=== PATIENT | female | born 1995 | race Caucasian/White ===

== ENCOUNTER 2023-09-01 04:56 | Observation (INO) ==
--- NOTE | 2023-09-01 05:10 | DR.SOBA ---
HPI Time Seen Time Seen by Provider: 09/01/23 05:10 Complaints Chief Complaint Doctors Comments: Patient states that she has been using primatene mist for 3 weeks. Two days ago her symptoms worsened and the primatene mist was not helping her. Patient has chest discomfort.Patient denies:fever,cough,nausea,vomitng,back pain,abdl pain,dizziness. PMH PMH Past Surgical History: Yes Social History Do you use any recreational Drugs:: No ROS Review of Systems Constitutional: negative Fever Eyes: No Symptoms Reported ENTM: No Symptoms Reported Respiratoy: Short of Breath Cardiovascular: No Symptoms Reported and Chest Pain Gastrointestinal/Abdominal: No Symptoms Reported Genitourinary: No Symptoms Reported Neurological: Anxiety Musculoskeletal: No Symptoms Reported Integumentary: No Symptoms Reported Hematologic/Lymphatic: No Symptoms Reported Endocrine: No Symptoms Reported Psychiatric: No Symptoms Reported All Other Systems: Reviewed and Negative PE Vital Signs Vitals: Vital Signs Temperature 98.8 F Pulse Rate 74 Pulse Rate 81 Pulse Rate 68 Pulse Rate 68 Pulse Rate 85 Pulse Rate 88 Pulse Rate 94 Pulse Rate 96 Pulse Rate 98 Pulse Rate 108 Respiratory Rate 20 Respiratory Rate 18 Respiratory Rate 19 Respiratory Rate 16 Respiratory Rate 21 Respiratory Rate 19 Respiratory Rate 19 Respiratory Rate 19 Respiratory Rate 20 Blood Pressure 145/81 Blood Pressure 144/85 Blood Pressure 144/85 Blood Pressure 132/86 Blood Pressure 131/88 Blood Pressure 145/94 O2 Sat by Pulse Oximetry 95 O2 Sat by Pulse Oximetry 99 O2 Sat by Pulse Oximetry 98 O2 Sat by Pulse Oximetry 99 O2 Sat by Pulse Oximetry 97 O2 Sat by Pulse Oximetry 97 O2 Sat by Pulse Oximetry 96 O2 Sat by Pulse Oximetry 95 O2 Sat by Pulse Oximetry 95 O2 Sat by Pulse Oximetry 94 General Limitations: No Limitations General Appearance: Alert and Anxious Head Head Exam: Normal Inspection Eyes Eye exam: Normal Appearance ENT ENT Exam: Normal Exam Neck Neck Exam: Normal Inspection Chest Chest Inspection: Normal Inspection Respiratory Respiratory Exam: Normal Lung Sounds Bilat Respiratory Exam: Bilateral: Wheezing (expiratory generalized) Cardiovascular Cardiovascular Exam: Regular Rate and Normal Rhythm Abdominal Exam Abdominal Exam: Normal Inspection, Normal Bowel Sounds and Soft Extremities Extremities Exam: Normal Inspection Back Back Exam: Normal Inspection Neurologic Neurological Exam: Alert and Oriented X3 Psychiatric Psychiatric Exam: Normal Affect and Normal Mood Skin Skin Exam: Warm, Dry, Intact and Normal Color MDM Differential Diagnosis Differential Diagnosis: Asthma and Pneumonia Differential Diagnosis Comment:: Electrolyte Disorder COURSE Treatment Treatment: 05:10 Evaluated the patient. Labs ordered,iv access initiated and patient was given solumedrol 125mg Iv,1hr long duoneb. 05:35 ABG: Ph 7.42/P02 66/PC02 37/02SAT 93% 05:45 Re-exam Patient has expiratory rhonchi diffusely,CXR no acute process,wbc wnl,CMP stable 06:[address] Lauren. Dr Lauren has accepted the patient to his service for further evaluation. [facility]OR Labs Reviewed Laboratory Results Reviewed?: Yes 09/01/23 05:15 09/01/23 05:15 Laboratory: WBC 13.4 X10^3/uL (3.6-10.0) H 09/01/23 05:15 RBC 4.97 X10^6/uL (3.5-5.4) 09/01/23 05:15 Hgb 15.7 g/dL (12.0-16.0) 09/01/23 05:15 Hct 46.6 % (36.0-47.0) 09/01/23 05:15 MCV 93.8 fL (80.0-100.0) 09/01/23 05:15 MCH 31.7 pg (27.0-34.0) 09/01/23 05:15 MCHC 33.8 g/dL (33.0-35.0) 09/01/23 05:15 RDW 13.0 % (11.6-16.5) 09/01/23 05:15 Plt Count 419 X10^3/uL (150.0-450.0) 09/01/23 05:15 MPV 7.4 fL (7.4-11.0) 09/01/23 05:15 Neut % (Auto) 68.7 % (42.0-75.0) 09/01/23 05:15 Lymph % (Auto) 16.3 % (21.0-51.0) L 09/01/23 05:15 Ogle % (Auto) 5.6 % (0.0-13.0) 09/01/23 05:15 Eos % (Auto) 9.0 % (0.9-2.9) H 09/01/23 05:15 Baso % (Auto) 0.4 % (0.2-1.0) 09/01/23 05:15 Neut # (Auto) 9.2 x10^3/uL (2.2-4.8) H 09/01/23 05:15 Lymph # (Auto) 2.2 X10^3/uL (1.3-2.9) 09/01/23 05:15 Ogle # (Auto) 0.7 x10^3/uL (0.3-0.8) 09/01/23 05:15 Eos # (Auto) 1.2 x10^3/uL (0.0-0.2) H 09/01/23 05:15 Baso # (Auto) 0.1 X10^3/uL (0.0-0.1) 09/01/23 05:15 Absolute Nucleated RBC 0.1 /100WBC 09/01/23 05:15 Sample Site Rr 09/01/23 05:24 ABG pH 7.420 (7.35-7.45) 09/01/23 05:24 ABG pCO2 37.0 mmHg (35.0-45.0) 09/01/23 05:24 ABG pO2 66.0 mmHg (80.0-100.0) L 09/01/23 05:24 ABG HCO3 24.0 mmol/L (22-26) 09/01/23 05:24 ABG O2 Saturation 93.0 % (90-100) 09/01/23 05:24 ABG Base Excess -0.2 mmol/L (-2.0-2.0) 09/01/23 05:24 Dav Test Pos 09/01/23 05:24 A-a Gradient 37.0 mmHg 09/01/23 05:24 FiO2 21.0 09/01/23 05:24 Blood Gas Comments Bryson well ae 09/01/23 05:24 Sodium 136 mmol/L (136-145) 09/01/23 05:15 Corrected Sodium TNP 09/01/23 05:15 Potassium 4.0 mmol/L (3.5-5.1) 09/01/23 05:15 Chloride 102 mmol/L (98-107) 09/01/23 05:15 Carbon Dioxide 24.8 mmol/L (21-32) 09/01/23 05:15 BUN 11 mg/dL (7-18) 09/01/23 05:15 Creatinine 0.79 mg/dL (0.55-1.02) 09/01/23 05:15 Est GFR (MDRD) Af Amer > 60 (>60) 09/01/23 05:15 Est GFR (MDRD) Non-Af > 60 (>60) 09/01/23 05:15 Glucose 85 mg/dL (65-99) 09/01/23 05:15 Lactic Acid 0.4 mmol/L (0.4-2.0) 09/01/23 05:30 Calcium 9.0 mg/dL (8.5-10.1) 09/01/23 05:15 Corrected Calcium TNP 09/01/23 05:15 Total Bilirubin 0.80 mg/dL (0.2-1.0) 09/01/23 05:15 AST 16 Units/L (15-37) 09/01/23 05:15 ALT 24 Units/L (12-78) 09/01/23 05:15 Alkaline Phosphatase 148 Units/L (46-116) H 09/01/23 05:15 C-Reactive Protein 7.20 mg/L (0-3.0) H 09/01/23 05:15 Total Protein 8.5 g/dL (6.4-8.2) H 09/01/23 05:15 Albumin 4.0 g/dL (3.4-5.0) 09/01/23 05:15 Globulin 4.5 g/dL (2.5-4.5) 09/01/23 05:15 Albumin/Globulin Ratio 0.9 Ratio (1.1-2.1) L 09/01/23 05:15 Opioid Opioid Risk Tool Age (Donovan box if 16-45): Yes History of Preadolescent Sexual Abuse: No Total: 1 Total Score Risk Category: Low Risk Copyright: Mikhail SAAVEDRA predicting aberrant behaviors Discharge Plan Diagnosis Discharge Problem: Asthma exacerbation, Hypoxemia Discharge Plan Patient Disposition: 09 ADMITTED INPATIENT Condition: Stable Prescriptions: No Action sertraline 50 mg tablet 50 mg PO QDAY Primatene Mist 0.125 mg/actuation Hfa Aerosol Inhaler 1 puff INHALATION Q4H PRN Rx Instructions: may repeat once after 1 minute; do not exceed 8 inhalations per 24 hrs Health Concerns: Post Hospitalization: new medications and changes needed to prevent readmission or further decline. Pt educated and given instructions on all concerns. Plan of Treatment: Continue with present treatment and follow up plan. Pt is to keep follow up appointment as instructed and take medications as ordered. Orders to Discharge Patient Discharge Orders: Transfer (Routine); Ordered 09/01/23 Ordered By: Chloe Garcia Follow ups/Referrals Follow ups/Referrals: NFD,None [Primary Care Provider] - 3 days Instructions Stand Alone Forms: Post Hospital Follow Up Care
[2023-09-01] MEDS ORDERED: SOLU-Medrol 125 MG VIAL ONE (05:14)
[2023-09-01] MEDS ORDERED: PROVENTIL NEB TX 0.083% 2.5MG/ 3ML ONE ×2 (05:15→05:18)
[2023-09-01] MEDS ORDERED: SALINE 0.9% 3 ML NEB TX NEB ONE (05:15)
[2023-09-01] MEDS ORDERED: PROVENTIL NEB TX 0.083% 2.5MG/ 3ML NEB ONE (05:17)
[2023-09-01] MEDS ORDERED: SOLU-Medrol 125 MG VIAL IVP ONE (05:19)
[2023-09-01 05:30] LABS: ABG ALLEN TEST POS; ABG BASE EXCESS -0.2 mmol/L (-2.0-2.0)
[2023-09-01 05:31] LABS: BASOPHILS # (AUTO) 0.1 X10^3/uL (0.0-0.1); BASOPHILS % (AUTO) 0.4 % (0.2-1.0); EOSINOPHILS # (AUTO) 1.2 x10^3/uL (0.0-0.2); HEMATOCRIT 46.6 % (36.0-47.0); HEMOGLOBIN 15.7 g/dL (12.0-16.0); LYMPHOCYTES # (AUTO) 2.2 X10^3/uL (1.3-2.9); LYMPHOCYTES % (AUTO) 16.3 % (21.0-51.0); MEAN CORPUSCULAR HEMOGLOBIN 31.7 pg (27.0-34.0); MEAN CORPUSCULAR HGB CONC 33.8 g/dL (33.0-35.0); MEAN CORPUSCULAR VOLUME 93.8 fL (80.0-100.0); MEAN PLATELET VOLUME 7.4 fL (7.4-11.0); MONOCYTES # (AUTO) 0.7 x10^3/uL (0.3-0.8); MONOCYTES % (AUTO) 5.6 % (0.0-13.0); NEUTROPHILS # (AUTO) 9.2 x10^3/uL (2.2-4.8); NEUTROPHILS % (AUTO) 68.7 % (42.0-75.0); PLATELET COUNT 419 X10^3/uL (150.0-450.0); RED BLOOD COUNT 4.97 X10^6/uL (3.5-5.4); WHITE BLOOD COUNT 13.4 X10^3/uL (3.6-10.0)
[2023-09-01 05:39] LABS: ALANINE AMINOTRANSFERASE 24 Units/L (12-78); ALKALINE PHOSPHATASE 148 Units/L (46-116); ASPARTATE AMINO TRANSFERASE 16 Units/L (15-37); BLOOD UREA NITROGEN 11 mg/dL (7-18); CARBON DIOXIDE 24.8 mmol/L (21-32); CHLORIDE 102 mmol/L (98-107); CREATININE 0.79 mg/dL (0.55-1.02); GLUCOSE 85 mg/dL (65-99); SODIUM 136 mmol/L (136-145); TOTAL PROTEIN 8.5 g/dL (6.4-8.2); eGFR NON BLACK RACES > 60 (>60)
[2023-09-01] MEDS ORDERED: NS 1,000 ML IV 1,000 ML ONE (07:12)
[2023-09-01] MEDS: NS 1,000 ML IV 1,000 ML IV SCH ×2 (07:14→21:06)
--- NOTE | 2023-09-01 07:35 | RAD ---
EXAM:Portable chestHISTORY:Cough, wheezing, shortness of breathCOMPARISON:NoneFINDINGS:Heart size is normal. Guerline are normal. Lungs are free of acute infiltrates. No pleural effusions are identified. No pneumothorax identified. Bony thorax is unremarkable.IMPRESSION:No significant abnormality identifiedTHIS IS AN ELECTRONICALLY VERIFIED FINAL REPORT09/01/2023 7:32 AM - Electronically signed by Moises Reed MD
[2023-09-01] MEDS ORDERED: ZOLOFT PO SCH ×2 (09:00→21:00)
[2023-09-01 09:19] VITALS: BMI 37.3
[2023-09-01] MEDS: DUONEB 0.5 MG/3 MG (3 mL) NEB SCH ×5 (09:30→20:20)
[2023-09-01] MEDS: ROCEPHIN VIAL 1 GRAM 1 G in NS 100 ML IV 100 ML IV SCH (10:16)
--- NOTE | 2023-09-01 10:30 | DR.H&P ---
H&P - History & Physical for Day of: H&P Date: 09/01/23 - Chief Complaint Chief Complaint: SHORTNESS OF BREATH AND WHEEZING - History of Present Illness History of Present Illness: IS A 27 YEAR OLD WHITE FEMALE. SHE HAS A PMH OF ASTHMA. SHE DOES NOT HAVE A PCP AND ONLY TAKES OVER THE COUNTER PRIMATENE FOR HER ASTHMA. SHE PRESENTED TO THE ER WITH COMPLAINTS OF SHORTNESS OF BREATH AND WHEEZING FOR THE PAST 3 WEEKS, THAT HAS PROGRESSIVELY GOTTEN WORSE. SHE ADMITS TO GOING THROUGH ONE PRIMATENE MIST INHALER A WEEK, WHEREAS ONE USUALLY LASTS HER A MONTH. SHE ADMITS TO CHEST DISCOMFORT. SHE DENIES FEVER, NAUSEA, VOMITING, BACK PAIN, ABDOMINAL PAIN, OR DIZZINESS. ON ARRIVAL TO THE ER, HER VITALS WERE: 98.8-108-20-94%-145/94. LABS WERE OBTAINED. WBC 13.4, RBC 4.97, HGB 15.7, HCT 46.6, PLT COUNT 419, SODIUM 136, POTASSIUM 4.0, CHLORIDE 102, BUN 11, CREATININE 0.79, GLUCOSE 85, CALCIUM 9.0, TOTAL BILI 0.80, AST 16, ALT 24, ALK PHOS 148, CRP 7.20, TOTAL PROTEIN 8.5, ALBUMIN 4.0. ABG WAS OBTAINED AND REVEALED: PH 7.420, PC02 37, P02 66, HC03 24.0, 02 SAT 93, BASE EXCESS -0.2, A-A GRADIENT 37, FI02 21.0. COVID, INFLUENZA, AND RSV WERE NEGATIVE. A RESPIRATORY VIRAL SWAB WAS DONE. BLOOD CULTURES WERE SET UP. A CHEST XRAY WAS OBTAINED AND REVEALED: Heart size is normal. Guerline are normal. Lungs are free of acute infiltrates. No pleural. effusions are identified. No pneumothorax identified. Bony thorax is unremarkable. IN THE ER, SHE WAS GIVEN A SALINE NEB TX, PROVENTIL NEB TX, SOLU-MEDROL 125MG IV X 1. SHE WAS ADMITTED TO THE HOSPITAL OBSERVATION STATUS FOR FURTHER EVALUATION AND TREATMENT OF ASTHMA EXCERBATION AND ACUTE BRONCHITIS. SHE WAS STARTED ON NORMAL SALINE AT 75 ML/HR, ROCEPHIN 1G IV DAILY, SOLU-MEDROL 40MG IV Q8H, DUONEBS Q4H, AND ZOLOFT 50MG PO HS. OTHERWISE, WE PLAN TO FOLLOW-UP WITH AM LABS AND CONTINUE TO MONITOR. TIME SPENT ON CLINICAL ASSESSMENT, REVIEWING LABS AND IMAGING, DECISION MAKING, AND DOCUMENTATION GREATER THAN 75 MINUTES. - Past Medical History Past Medical History: Anxiety, Asthma, Depression, Hypertension - Past Surgical History Surgical History: - Family History Family Medical History: Cancer - Social History Does patient currently use any type of tobacco product: Yes (VAPE) Have you used tobacco products in the last 12 months: Yes Type of Tobacco Use: Smokeless Does any household member use tobacco: No Alcohol Use: Rarely Drug Use: Marijuana - Review of Systems Constitutional: No Symptoms Reported Eyes: No Symptoms Reported ENT: No Symptoms Reported Respiratory: See HPI, Shortness of Breath, SOB with Excertion, Wheezing Cardiovascular: No Symptoms Reported Gastrointestinal: No Symptoms Reported Genitourinary: No Symptoms Reported Musculoskeletal: No Symptoms Reported Skin: No Symptoms Reported Neurological: No Symptoms Reported - Physical Exam Vital Signs: Vital Signs Temperature 98.8 F Pulse Rate [Left Radial] 98 Pulse Rate 98 Pulse Rate 81 Pulse Rate 89 Pulse Rate 91 Pulse Rate 94 Pulse Rate 109 Pulse Rate 105 Pulse Rate 97 Pulse Rate 106 Pulse Rate 74 Pulse Rate 81 Pulse Rate 68 Pulse Rate 68 Pulse Rate 85 Pulse Rate 88 Pulse Rate 94 Pulse Rate 96 Pulse Rate 98 Pulse Rate 108 Respiratory Rate 24 Respiratory Rate 23 Respiratory Rate 19 Respiratory Rate 23 Respiratory Rate 24 Respiratory Rate 27 Respiratory Rate 13 Respiratory Rate 20 Respiratory Rate 19 Respiratory Rate 20 Respiratory Rate 18 Respiratory Rate 19 Respiratory Rate 16 Respiratory Rate 21 Respiratory Rate 19 Respiratory Rate 19 Respiratory Rate 19 Respiratory Rate 20 Blood Pressure [Left Arm] 153/79 Blood Pressure 144/85 Blood Pressure 162/93 Blood Pressure 150/81 Blood Pressure 145/81 Blood Pressure 144/85 Blood Pressure 144/85 Blood Pressure 132/86 Blood Pressure 131/88 Blood Pressure 145/94 O2 Sat by Pulse Oximetry 95 O2 Sat by Pulse Oximetry 95 O2 Sat by Pulse Oximetry 94 O2 Sat by Pulse Oximetry 93 O2 Sat by Pulse Oximetry 93 O2 Sat by Pulse Oximetry 92 O2 Sat by Pulse Oximetry 96 O2 Sat by Pulse Oximetry 96 O2 Sat by Pulse Oximetry 93 O2 Sat by Pulse Oximetry 94 O2 Sat by Pulse Oximetry 95 O2 Sat by Pulse Oximetry 99 O2 Sat by Pulse Oximetry 98 O2 Sat by Pulse Oximetry 99 O2 Sat by Pulse Oximetry 97 O2 Sat by Pulse Oximetry 97 O2 Sat by Pulse Oximetry 96 O2 Sat by Pulse Oximetry 95 O2 Sat by Pulse Oximetry 95 O2 Sat by Pulse Oximetry 94 Oriented: Normal Eyes: Normal Ear: Normal Nose: Normal Throat: Normal Respiratory: Wheezes Throughout Cardiovascular: Tachycardia : Normal Auscultation: Bowel Sounds: Normal Palpation: Normal Tenderness: Normal Skin: Normal Musculoskeletal: Normal Psychiatric: Normal Mood Description: Calm Affect: Normal Speech Pattern: Clear - Assessment/Plan (1) Asthma exacerbation Qualifiers: Asthma severity: moderate Asthma persistence: unspecified Qualified Code(s): J45.901 - Unspecified asthma with (acute) exacerbation Status: Acute Plan: ADMIT, SUPPLEMENTAL OXYGEN, NORMAL SALINE AT 75 ML/HR, ROCEPHIN 1G IV DAILY, SOLU-MEDROL 40MG IV Q8H, DUONEBS Q4H, AND ZOLOFT 50MG PO HS. (2) Acute bronchitis Qualifiers: Bronchitis organism: unspecified organism Qualified Code(s): J20.9 - Acute bronchitis, unspecified Status: Acute (3) Hypoxemia Status: Acute (4) Major depressive disorder Qualifiers: Major depression recurrence: recurrent Active/Remission status: remission status unspecified Qualified Code(s): F33.9 - Major depressive disorder, recurrent, unspecified Status: Chronic Plan: RESUME ZOLOFT - Allergies Allergies/Adverse Reactions: Allergies Allergy/AdvReac Type Severity Reaction Status Date / Time No Known Drug Allergies Allergy Verified 09/01/23 05:07 - Medications Home Medications: Home Medications Medication Instructions Recorded Confirmed epinephrine 0.125 mg/actuation 1 puff inhalation Q4H PRN 09/01/23 09/01/23 aerosol inhaler (Primatene Mist) sertraline 50 mg tablet 50 mg PO QDAY 09/01/23 09/01/23
[2023-09-01] MEDS: SOLU-Medrol 40 MG VIAL IVP SCH ×2 (13:57→21:06)
[2023-09-01] MEDS ORDERED: TYLENOL 325 MG TAB PO PRN (16:09)
[2023-09-02] MEDS: DUONEB 0.5 MG/3 MG (3 mL) NEB SCH ×3 (00:25→09:04)
[2023-09-02 04:22] VITALS: TEMP 97.9
[2023-09-02] MEDS: SOLU-Medrol 40 MG VIAL IVP SCH (05:20)
[2023-09-02 06:07] LABS: BASOPHILS % (AUTO) 0.3 % (0.2-1.0); HEMATOCRIT 40.6 % (36.0-47.0); LYMPHOCYTES # (AUTO) 0.6 X10^3/uL (1.3-2.9); LYMPHOCYTES % (AUTO) 4.2 % (21.0-51.0); MEAN CORPUSCULAR HEMOGLOBIN 31.3 pg (27.0-34.0); MEAN CORPUSCULAR HGB CONC 33.7 g/dL (33.0-35.0); MEAN CORPUSCULAR VOLUME 92.9 fL (80.0-100.0); MEAN PLATELET VOLUME 7.8 fL (7.4-11.0); MONOCYTES # (AUTO) 0.4 x10^3/uL (0.3-0.8); MONOCYTES % (AUTO) 3.2 % (0.0-13.0); NEUTROPHILS # (AUTO) 12.4 x10^3/uL (2.2-4.8); PLATELET COUNT 367 X10^3/uL (150.0-450.0); RED BLOOD COUNT 4.38 X10^6/uL (3.5-5.4); RED CELL DISTRIBUTION WIDTH 13.2 % (11.6-16.5); WHITE BLOOD COUNT 13.5 X10^3/uL (3.6-10.0)
[2023-09-02 06:11] LABS: ALANINE AMINOTRANSFERASE 20 Units/L (12-78); ALBUMIN 3.5 g/dL (3.4-5.0); ALKALINE PHOSPHATASE 125 Units/L (46-116); ASPARTATE AMINO TRANSFERASE 11 Units/L (15-37); BLOOD UREA NITROGEN 9 mg/dL (7-18); CARBON DIOXIDE 23.9 mmol/L (21-32); CHLORIDE 103 mmol/L (98-107); COR NA(FOR HYPERGLY) 138 mmol/L (136-145); CREATININE 0.57 mg/dL (0.55-1.02); GLUCOSE 128 mg/dL (65-99); SODIUM 137 mmol/L (136-145); TOTAL PROTEIN 7.6 g/dL (6.4-8.2); eGFR NON BLACK RACES > 60 (>60)
[2023-09-02 06:13] LABS: HEMOGLOBIN 13.7 g/dL (12.0-16.0)
[2023-09-02 06:14] LABS: NEUTROPHILS % (AUTO) 92.3 % (42.0-75.0)
[2023-09-02 06:28] LABS: BAND NEUTROPHILS % 1 % (0-10); PLATELET MORPHOLOGY COMMENT NORMAL (NORMAL)
--- NOTE | 2023-09-02 07:54 | RAD ---
EXAM:CHEST, 1 VIEWHISTORY:SOB ;COMPARISON:09/01/2023.TECHNIQUE:AP view of the chestFINDINGS:The cardiac and mediastinal contours are normal in size. Minor linear right mid to lower lung opacity. No consolidation or segmental lung collapse. No pleural effusion or pneumothorax.IMPRESSION:Minor subsegmental atelectasis or scar in the right mid to lower lung.THIS IS AN ELECTRONICALLY VERIFIED FINAL REPORT09/02/2023 7:39 AM - Electronically signed by Vijay Montaño MD
[2023-09-02 08:15] VITALS: BP 142/81; PULSE 94; RESP 18; O2SAT 95
[2023-09-02] MEDS: ROCEPHIN VIAL 1 GRAM 1 G in NS 100 ML IV 100 ML IV SCH (10:08)
== END 2023-09-02 11:35 | disposition home or self-care (01) ==
LOC: ER 04:58 → MED/SURG 04:58
PROVIDERS: ADMIT Internal Medicine; ATTEND Internal Medicine
DX: R09.02 Hypoxemia; R06.02 Shortness of breath; J45.901 Unspecified asthma with (acute) exacerbation; R79.82 Elevated C-reactive protein (CRP); J20.8 Acute bronchitis due to other specified organisms; F33.8 Other recurrent depressive disorders; I10 Essential (primary) hypertension; Z20.822 Contact with and (suspected) exposure to COVID-19